=== PATIENT | male | born 2000 | race Two or more races ===

== ENCOUNTER 2024-08-16 06:51 | Emergency (ER) | payer MEDICAID, SELFPAY ==
[2024-08-16 06:52] VITALS: BMI 29.6
[2024-08-16 06:58] VITALS: BP 150/95; PULSE 109; RESP 17; TEMP 37.1; O2SAT 96
--- NOTE | 2024-08-16 07:14 | PD.EDRME ---
Rapid Medical Screening Exam E Arrival date/time: 08/16/24 06:51 Chief Complaint: Headache Time Seen by Provider: 08/16/24 06:55 Vital signs: Vital Signs Temperature 98.8 F 08/16/24 06:58 Pulse Rate 109 H 08/16/24 06:58 Respiratory Rate 17 08/16/24 06:58 Blood Pressure 150/95 H 08/16/24 06:58 Pulse Oximetry (%) 96 08/16/24 06:58 Oxygen Delivery Method Room Air 08/16/24 06:58 E Narrative: 23-year-old male with past medical history of depression presents for evaluation of headache x 4 days. He describes it as posterior ocular tightness with pressure radiating to the back of his scalp. He denies visual changes, weakness, tingling. Patient reports prior similar headaches but states that they have not lasted this long. He denies taking medication for his headache prior to arrival to the ED. Patient denies chest pain, fever, chills, nausea, vomiting, neck pain. Denies recent trauma.
[2024-08-16] MEDS: ACETAMINOPHEN 325 MG TABLET 650 MG PO (07:39)
[2024-08-16] MEDS: METOCLOPRAMIDE INJ 5 MG/ML VIAL 2 ML 10 MG IM (07:40)
[2024-08-16] MEDS: DiphenhydrAMINE INJ 50 MG/ML VIAL 25 MG IM (07:43)
--- NOTE | 2024-08-16 08:24 | XR_ITS ---
Examination: CT brain head without contrast. 2-D sagittal coronal reconstructions Date and time of exam:August 16, 2024 1003 hrs. Indications: Headaches beginning 4 days ago CTDI: vol (mGy):56.7 DLP: (mGycm):1145 Technique: Multiple CT axial sections of the brain have been obtained, 5 mm slice thickness. Contrast has not been administered. 2-D sagittal, coronal reconstructions have been obtained Low dose protocols were performed. One or more of the following dose reduction techniques were used; automated exposure control, adjustment of the mA and/or KV according to patient size, use of iterative reconstruction technique. Findings: No significant ventricular enlargement. Intra-axial or extra-axial hemorrhage density is not seen. No mass effect or midline shift Basal cisterns are not remarkable. Fourth ventricle is midline. Cranial vault intact. Impression: Negative for acute hemorrhage, mass effect or midline shift As clinically warranted, if new onset headaches persist, consider brain MRI follow-up
[2024-08-16] MEDS: KETOROLAC INJ 60 MG/2 ML VIAL 30 MG IM (08:44)
--- NOTE | 2024-08-16 11:26 | PD.EDHA ---
ED Headache RME/HPI General Chief Complaint: Headache Stated Complaint: HEACHACHE X 4 DAYS Time Seen by Provider: 08/16/24 06:55 Arrival date/time: 08/16/24 06:51 Limitations: no limitations RME / HPI RME / HPI Narrative: 23-year-old male with past medical history of depression presents for evaluation of headache x 4 days. He describes it as posterior ocular tightness with pressure radiating to the back of his scalp. He denies visual changes, weakness, tingling. Patient reports prior similar headaches but states that they have not lasted this long. He denies taking medication for his headache prior to arrival to the ED. Patient denies chest pain, fever, chills, nausea, vomiting, neck pain. Denies recent trauma. MD Complaint: headache Onset (ago): day(s) Onset description: gradual Location: retro-orbital Quality: aching Relieving factors: nothing Exacerbating factors: none Related Data Home Medications ?Medication ?Instructions ?Recorded ?Confirmed aripiprazole 2 mg tablet (Abilify) 2 mg PO QDAY #0 tabs 07/19/16 sertraline 25 mg tablet (Zoloft) 25 mg PO HS #0 tabs 08/15/16 Previous Rx's ?Medication ?Instructions ?Recorded famotidine 40 mg tablet (Pepcid) 40 mg PO QDAY #30 tabs 06/07/24 Allergies Allergy/AdvReac Type Severity Reaction Status Date / Time meningitis vaccine Allergy Intermediate body pain Uncoded 08/16/24 06:56 Review of Systems Constitutional Constitutional: Denies fever(s), Reports headache(s) and Denies weakness Eyes Eyes: Denies blurry vision and Denies change in vision ENT Ears, Nose, Mouth, and Throat: Denies dizziness, Denies otalgia, Reports headache(s), Denies nasal congestion, Denies nasal discharge, Denies neck pain and Denies sore throat Cardiovascular Cardiovascular: Denies chest pain and Denies dyspnea Respiratory Respiratory: Denies cough and Denies dyspnea Gastrointestinal Gastrointestinal: Denies nausea and Denies vomiting Musculoskeletal Musculoskeletal: Denies back pain and Denies neck pain Integumentary/Breasts Skin/Breast: Denies rash Neurologic Neurologic: Denies dizziness, Reports headache(s) and Denies weakness Past Medical History Past Medical History CARDIAC: Negative Congestive Heart Failure RESPIRATORY: Negative Chronic Obstructive Pulmonary Disease (COPD) GENITOURINARY: Negative Renal Disease ENDOCRINE: Negative Diabetes Mellitus Type 1 or Diabetes Mellitus Type 2 PSYCHO/SOCIAL: Positive Depression, Anxiety and Self-Mutilation (gives me relief) Social History SMOKING STATUS: Never smoker ED Exam General Limitations: Present no limitations General appearance: Present alert and in no apparent distress Head Head exam: Present atraumatic and normocephalic Eye Eye exam: Present normal appearance, PERRL and EOMI; Absent conjunctival injection, nystagmus, periorbital swelling or periorbital tenderness ENT ENT exam: Present normal exam, normal oropharynx, mucous membranes moist and TM's normal bilaterally Expanded ENT Exam Nose exam: Absent sinus tenderness Neck Neck exam: Present normal inspection and full ROM; Absent meningismus Chest Chest inspection: Present normal inspection and symmetric chest wall rise Respiratory Respiratory exam: Present normal lung sounds bilaterally; Absent respiratory distress Cardiovascular Cardiovascular exam: Present tachycardia Abdominal Exam Abdominal exam: Present soft; Absent distention Extremities Exam Extremities exam: Present normal inspection Back Exam Back exam: Present normal inspection and full ROM Neurological Exam Neurological exam: Present alert, oriented X3 and normal gait Expanded Neurological Exam Cranial nerves: Normal: facial sensation (V) Cerebellar function: Present normal gait Motor strength - LUE: 5/5 Motor strength - RUE: 5/5 Motor strength - LLE: 5/5 Motor strength - RLE: 5/5 Psychiatric Psychiatric exam: Present normal affect Skin Skin exam: Present warm and dry Course Quality Measures none Orders Category Date Time Status Bedside COVID-19 Antigen Test NOW Care 08/16/24 07:10 Active Bedside Influenza A&B Antigen Test NOW Care 08/16/24 07:[address] head/brain wo con Stat Exams 08/16/24 08:24 Completed Acetaminophen Tab [Tylenol Tab] Med 08/16/24 07:10 Discontinued 650 mg PO X1 ONE DiphenhydrAMINE INJ [Benadryl Inj] Med 08/16/24 07:10 Discontinued 25 mg IM X1 ONE Ketorolac Inj [Toradol Inj] Med 08/16/24 08:24 Discontinued 30 mg IM X1 ONE Metoclopramide Inj [Reglan Inj] Med 08/16/24 07:10 Discontinued 10 mg IM X1 ONE Reevaluation(s) Reevaluation #1: Patient reevaluated. Nontoxic-appearing, speaking full sentences. Reports that his headaches improved following Toradol injection. We discussed the results of today's workup. I advised the patient to consider doing saline flushes as this sounds like it might be related to his sinuses. Patient agreeable plan for discharge and follow-up with primary care in the next 24 to 48 hours. Return precautions were provided. Time: 11:27 Vital Signs Vital signs: Vital Signs Temperature 98.8 F 08/16/24 06:58 Pulse Rate 109 H 08/16/24 06:58 Respiratory Rate 17 08/16/24 06:58 Blood Pressure 150/95 H 08/16/24 06:58 Pulse Oximetry (%) 96 08/16/24 06:58 Oxygen Delivery Method Room Air 08/16/24 06:58 Pulse ox 96% on room air, within normal limits. Headache MDM Narrative MDM Narrative:: Tension-Type Headache: Common in young adults, typically associated with a dull, tight, or pressure-like pain that can radiate to the back of the head or neck. This fits with the patient?s description of tightness and pressure without accompanying neurological symptoms. Migraine Headache: While migraines usually involve one-sided throbbing pain, some patients may experience atypical patterns, such as the pressure and tightness described here. However, the lack of visual changes, nausea, and vomiting makes this less likely. Cluster Headache: Although cluster headaches are characterized by severe, unilateral pain, often around the eye, they typically present with autonomic symptoms (e.g., eye tearing, rhinorrhea, ptosis), which this patient does not have. Cervicogenic Headache: This type of headache originates from neck issues, but this patient denies neck pain or trauma. Medication Overuse Headache (MOH): If the patient were using pain medications frequently, this would need to be considered, but the patient denies prior medication use. Sinusitis: While sinus headaches can cause pressure, the absence of other symptoms such as fever, facial tenderness, or nasal congestion makes this less likely. Intracranial Pathology: Although less likely due to the absence of red flags (e.g., fever, nausea, vomiting, neurological symptoms), an intracranial cause (e.g., mass effect, subarachnoid hemorrhage) should be considered in cases of persistent headache. Presentation most consistent with sinus headache, however no fever and no tenderness to palpation of sinuses therefore antibiotic was deferred at this time. CT head reassuring given no mass effect, no midline shift. Viral swabs today were negative. Ultimately patient was discharged home with plan to follow-up with primary care in the next 24 to 48 hours. He was advised to return to the ED if his headache changes or worsens. Patient stable at time of discharge Patient data External records reviewed:: [facility] previous records Clinical information provided by:: patient Social determinants that could affect healthcare access:: none Patient has the following chronic illnesses:: Depression. How is presenting disease/condition affected by chronic disease/condition?: uneffected by Evaluation data The following diagnostics were reviewed and interpreted by me:: lab results and radiology exam(s) Lab and/or radiology exams considered but not ordered:: MRI head considered not ordered. Interpretation Summary: CT head without evidence of acute intracranial process, no midline shift, no mass effect. Flu and COVID negative. Medications / Prescriptions Medications or Prescriptions considered but not ordered:: Rx given. Medication administrations:: Medication Administration History Discontinued Medications Acetaminophen (Acetaminophen 325 Mg Tablet) 650 mg PO X1 ONE Stop: 08/16/24 07:11 Last Admin: 08/16/24 07:39 Dose: 650 mg Documented By: LF Diphenhydramine HCl (Diphenhydramine Inj 50 Mg/Ml Vial) 25 mg IM X1 ONE Stop: 08/16/24 07:11 Last Admin: 08/16/24 07:43 Dose: 25 mg Documented By: LF Ketorolac Tromethamine (Ketorolac Inj 60 Mg/2 Ml Vial) 30 mg IM X1 ONE Stop: 08/16/24 08:25 Last Admin: 08/16/24 08:44 Dose: 30 mg Documented By: Metoclopramide HCl (Metoclopramide Inj 5 Mg/Ml Vial 2 Ml) 10 mg IM X1 ONE Stop: 08/16/24 07:11 Last Admin: 08/16/24 07:40 Dose: 10 mg Documented By: LF Rx given. Consultations Consultation(s) initiated? (list below): No Diagnosis Differential diagnosis headache: migraine, tension headache, subarachnoid hemorrhage, headache, meningitis, sinusitis and other (CVA.) Most likely diagnosis given after review of the tests above:: Sinus headache. Admission Indicated Admission indicated?: not indicated Admission Request Was there a request for admission?: No Disposition Plan Disposition Plan: Discharge Discharge Attestation Discharge Attestation: The patient and all family members were given an opportunity to ask questions and understood the discharge instructions. Discharge instructions specifically effects, indications for sooner follow up or return to the emergency department, and the expected course of current diagnosis. Patient condition: Stable Discharge Plan Plan Patient Disposition: HOME (Self Care) Disposition Comment: stable Prescriptions/Referrals Prescriptions/Med Rec: No Action aripiprazole [Abilify] 2 MG tablet 2 mg PO QDAY Qty: 0 sertraline [Zoloft] 25 MG tablet 25 mg PO HS Qty: 0 famotidine [Pepcid] 40 mg tablet 40 mg PO QDAY Qty: 30 0RF Referrals: No Primary/Family,Physician [Primary Care Provider] - In 1 week Problem List Clinical Impression: Headache Patient/Caregiver Discharge Instructions Education Materials: Self-Care for Headaches, ED Sinus Headache Print Language: Romanian Stand Alone Forms: Laura Award Info., Patient Portal Info Letter PA/PROPERTY ECONOMIST Supervising Physician PA/PROPERTY ECONOMIST Supervising Physician: Dr. Uribe
[2024-08-16 11:59] VITALS: BP 140/78; PULSE 86; RESP 16; TEMP 36.9; O2SAT 98
== END 2024-08-16 12:03 | disposition home or self-care (01) ==
PROVIDERS: Emergency Provider Emergency Medicine
DX: R51.9 Headache, unspecified (principal)
CPT/HCPCS: 70450; 87400; 87811; 96372; 99284; J1200; J1885; J2765; A9270

== ENCOUNTER 2025-04-08 12:18 | Emergency (ER) | payer MEDICAID, SELFPAY ==
[2025-04-08 12:19] VITALS: BMI 30.4
[2025-04-08 12:30] VITALS: BP 156/92; PULSE 106; RESP 18; TEMP 36.9; O2SAT 96
--- NOTE | 2025-04-08 12:43 | EDNOTE_ITS ---
ED Psych RME/HPI General Chief Complaint: Psychiatric Symptoms Stated Complaint: LAC TO LEFT ARM SELF INFLICTED Time Seen by Provider: 04/08/25 12:42 Arrival date/time: 04/08/25 12:18 RME / HPI RME / HPI Narrative: 24-year-old male patient with history of suicidal attempts in the past, stopped taking medication for psych several years ago because he was feeling better, currently working in [employer] was brought in by family for evaluation regarding suicidal attempts. Patient has been thinking of hurting himself for the last 2 weeks, and today decided to grab medical knife/surgical knife and cut themselves. Patient sustained superficial laceration nongaping to the left forearm volar aspect. Denies any homicidal ideation. Denies any other complaints Related Data Home Medications ?Medication ?Instructions ?Recorded ?Confirmed aripiprazole 2 mg tablet (Abilify) 2 mg PO QDAY #0 tab s 07/19/16 sertraline 25 mg tablet (Zoloft) 25 mg PO HS #0 tabs 1 10/15/15 Previous Rx's ?Medication ?Instructions ?Recorded famotidine 40 mg tablet (Pepcid) 40 mg PO QDAY #30 tab s 06/07/24 Allergies Allergy/AdvReac Type Severity Reaction Status Date / Time meningitis vaccine Allergy Intermediate body pain Uncoded 04/08/25 12:22 Review of Systems Review of Systems Narrative Review of Systems: Review of system reviewed and within normal limits except mentioned in HPI ED Exam Narrative Physical exam: VITAL SIGNS: Reviewed. GENERAL APPEARANCE: Alert and interactive, follows commands, no acute distress,, crying, depressed HEAD AND FACE: Non-traumatic. ENT: PERRL, pink conjunctivitis, eyelid no trauma, Mucous membrane moist. NECK: Supple, nontender, no nuchal rigidity. CHEST: No tenderness, no crepitus, no paradoxical movement, no retractions. LUNGS: Clear, well ventilated, symmetric, no rales, no wheezing, no ronchi, no stridor, good breath sounds bilaterally. HEART: Regular rate, regular rhythm, no murmur, no gallops. ABDOMEN: Soft, positive bowel sounds, nondistended, no guarding, nontender, no rebound, no masses, RECTAL: Deferred. GENITAL: Deferred. NEUROLOGICAL: Gross motor function intact sensory function intact, Appropriate for age. MUSCULOSKELETAL: low back nontender, full range of motion. EXTREMITIES: Multiple nongaping laceration, left forearm volar aspect, full range of motion. No active bleeding noted distal neurovascular status intact SKIN: Color pink, dry, no rash, no lacerations, no abrasions, no contusions. LYMPHATICS: Deferred. Course Quality Measures none Orders Category Date Time Status 1799 Psychiatric Hold NOW Care 04/08/25 12:45 Ordered Diet Regular Diet 04/08/25 Lunch Active Acetaminophen Stat Lab 04/08/25 13:17 Completed Alcohol, Blood Medical Stat Lab 04/08/25 13:17 Completed Basic Metabolic Panel Stat Lab 04/08/25 13:17 Completed CBC Stat Lab 04/08/25 13:17 Completed Drug Screen,Urine Stat Lab 04/08/25 14:01 Completed Salicylate Stat Lab 04/08/25 13:17 Completed Urinalysis Stat Lab 04/08/25 14:01 Completed Referral Registration Coordinator NOW 04/08/25 12:42 Active Vital Signs Vital signs: Vital Signs Temperature 98.5 F 04/08/25 12:30 Pulse Rate 106 H 04/08/25 12:30 Respiratory Rate 18 04/08/25 12:30 Blood Pressure 156/92 H 04/08/25 12:30 Pulse Oximetry (%) 96 04/08/25 12:30 Oxygen Delivery Method Room Air 04/08/25 12:30 Psych MDM Narrative MDM Narrative:: Patient remained calm and cooperative. Patient is medically cleared for crisis intervention. Patient was accepted in [facility] in [place]. Patient data External records reviewed:: None Clinical information provided by:: patient and family Social determinants that could affect healthcare access:: mental health Patient has the following chronic illnesses:: None How is presenting disease/condition affected by chronic disease/condition?: exacerbated by Evaluation data The following diagnostics were reviewed and interpreted by me:: lab results Lab and/or radiology exams considered but not ordered:: None Interpretation Summary: Patient's workup today all came back unremarkable including negative for drug toxicity. Medications / Prescriptions Medications or Prescriptions considered but not ordered:: None Medication administrations:: None Consultations Consultation(s) initiated? (list below): No Diagnosis Psych Differential Diagnosis: acute psychosis, suicidal ideation and acute anxiety Most likely diagnosis given after review of the tests above:: Suicidal attempts Admission Indicated Admission indicated?: indicated Admission Request Was there a request for admission?: Yes Admission Attestation Admission request attestation: Patient was transferred to [facility] in [place] Disposition Plan Disposition Plan: Transfer Discharge Plan Plan Patient Disposition: [facility] Facility Prescriptions/Referrals Prescriptions/Med Rec: No Action aripiprazole [Abilify] 2 MG tablet 2 mg PO QDAY Qty: 0 sertraline [Zoloft] 25 MG tablet 25 mg PO HS Qty: 0 famotidine [Pepcid] 40 mg tablet 40 mg PO QDAY Qty: 30 0RF Referrals: No Primary/Family,Physician [Primary Care Provider] - In 1 week Problem List Clinical Impression: Attempted suicide Patient/Caregiver Discharge Instructions Print Language: Azeri Stand Alone Forms: Laura Award Info., Patient Portal Info Letter
--- NOTE | 2025-04-08 12:55 | PC.NURSE ---
PT INTRODUCED TO DAY SHIFT NURSE. WHEN ASKED WHAT HAPPENED STATES, I'VE BEEN OUT OF IT FOR ABOUT 2 WEEKS AND TODAY I COULDN'T STOP CUTTING MYSELF. PT WITH MULTIPLE SHALLOW CUTS TO LEFT FORARM, NO ACTIVE BLEEDING. MULTIPLE HEALED CUT SCARS TO LEFT FOREARM. PT ON 1798 HOLD BY PROVIDER. PT INFORMED ABOUT PROCESS AND NEED FOR URINE SPECIMEN.
[2025-04-08 13:31] LABS: Basophils # (Auto) 0.0 Thou/mm3 (0.0-0.2); Basophils % (Auto) 0 % (0-2.5); Eosinophils # (Auto) 0.1 Thou/mm3 (0.0-0.5); Eosinophils % (Auto) 1 % (0-10); Hematocrit 48.4 % (41.0-53.0); Hemoglobin 17.6 g/dL (13.5-16.0); Immature Granulocytes Auto 0.01 Thou/mm3 (0.00-0.00); Lymphocytes # (Auto) 2.3 Thou/mm3 (1.0-4.8); Lymphocytes % (Auto) 27 % (10-50); Mean Corpuscular HGB Conc 36.4 g/dl (31.0-37.0); Mean Corpuscular Hemoglobin 32.7 pg (25.0-35.0); Mean Corpuscular Volume 90 fL (80-100); Monocytes # (Auto) 0.5 Thou/mm3 (0.0-0.8); Monocytes % (Auto) 6 % (0-12); Neutrophils # (Auto) 5.7 Thou/mm3 (1.8-7.7); Neutrophils % (Auto) 66 % (37-80); Nucleated Red Blood Cell # 0.00 Thou/mm3 (0.00-0.00); Nucleated Red Blood Cell % 0 /100 WBC (0); Platelet Count 330 Thou/mm3 (140-440); RDW Standard Deviation 39.6 fL (35.1-43.9); Red Blood Count 5.39 Miln/mm3 (4.50-5.90); White Blood Count 8.6 Thou/mm3 (3.8-10.6)
[2025-04-08 13:54] LABS: Acetaminophen < 2.0 mcg/mL (10.0-20.0); Alcohol, Blood Medical < 10.0 mg/dL (0-10.0); Anion Gap 12 (7-16); BUN/Creatinine Ratio 13 Ratio (12-20); Blood Urea Nitrogen 10 mg/dL (9-23); Calcium 9.5 mg/dL (8.3-10.6); Carbon Dioxide 21.1 mMol/L (20.0-31.0); Chloride 108 mMol/L (98-107); Creatinine (Component) 0.8 mg/dL (0.6-1.3); Estimated Creatinine Clearance 157.1 mL/min (>60); Glucose 104 mg/dL (74-106); Osmolality,Calculated 280 (275-295); Potassium 3.5 mMol/L (3.4-5.1); Salicylate < 3.0 mg/dL; Sodium 141 mMol/L (136-145); eGFR > 60 See Note
[2025-04-08 14:11] LABS: Collection Type, Urine Clean Catch; Squamous Epithelial Cell,Urine 0 /hpf (0-5)
--- NOTE | 2025-04-08 14:24 | PC.CC ---
Patient is a 24 year-old male who presents to the hospital for intentional self-inflicted laceration to the left forearm. CAITLINWSpencer made [id number] contact with patient to complete assessment. ASW introduced self, role, and reason for assessment. ASW disclosed limits of confidentiality as well. Patient appeared alert and oriented to self, place, and situation. At bedside was patient?s previous hall worker, Nemesio Kent . Patient made appropriate eye contact but appeared to be depressed as he was emotional/tearful throughout assessment. No signs of delusions, paranoid or V/h. Patient reports he has been having suicidal ideations for the past two weeks as he has been having flashbacks from his childhood trauma. Patient reports today he went to the doctor in [place] at [facility] and was under the impression he was going to be seen by a psychiatrist for medication evaluation. Patient reports once there he was informed he was not going to be seen by a psychiatrist. Patient then drove home and began to have suicidal ideations which he was unable to control. Patient got a knife and began to cut his forearm and was only able to control how deep he went. ASW explored with patient if his plan was to end his life. Patient reports his intentions were to end his life. Per Marquis, he went to check on the patient and found the door open he walked in and found the patient on the floor in position with the laceration to the forearm. Patient reports his last suicide attempt was last year he got a knife and cut his arm but did not seek medical treatment. Patient is not connected to outpatient mental health services he was connected to [facility] in [place] but moved to [place] and did not like his new therapist so he stopped going. Patient reports this happen when he was 20 or 21. Patient reports he has a history of Generalized Anxiety Disorder and Major Depressive Disorder. Patient denied homicidal ideations, visual and auditory hallucinations. Patient continues to endorse suicidal ideations. Patient reports he feels he needs help. Marquis reports that patient is in need of mental health services. Patient is unable to provide a viable safety plan. Upon clinical consultation with [facility], Guerline Chávez patient will be placed on a 5150-hold for Danger to Self. ASW provided update to Dr. Ureña, TYLER Granados, hot die picker Nicolle, and bedside RN La that patient will be discharged to LPS facility. ASW to send referral via [facility] to LPS facilities. ?
[2025-04-08 14:28] LABS: Bilirubin,Urine Negative (Negative); Blood,Urine Negative (Negative); Clarity,Urine Clear (Clear/Hazy); Color,Urine Yellow (Lt Yel-Yel); Glucose, Urine Negative (Negative); Ketones,Urine Negative (Negative); Leukocyte Esterase,Urine Negative (Negative); Nitrite,Urine Negative (Negative); PH,Urine 6.5 (5.0-7.0); Protein,Urine Negative (Neg - Trace); RBC,Urine 3 /hpf (0-3); Specific Gravity,Urine 1.023 (1.001-1.035); Urobilinogen,Urine Negative mg/dL (0.0-1.0); WBC,Urine < 1 /hpf (0-5)
[2025-04-08 14:33] VITALS: BP 128/87; PULSE 88; RESP 16; O2SAT 95
[2025-04-08 14:35] LABS: Amphetamine/Methamp Scrn,U Negative (Negative); Barbiturate Screen,Urine Negative (Negative); Benzodiazepines Screen,Urine Negative (Negative); Benzoylecgonine Screen, Ur Negative (Negative); Fentanyl Screen,Urine Negative (Negative); Opiate Screen,Urine Negative (Negative); THC Screen,Urine Negative (Negative)
--- NOTE | 2025-04-08 14:42 | PC.NURSE ---
placed on 5150 hold per geriatric social work professor
--- NOTE | 2025-04-08 15:34 | PC.CC ---
Patient was provided with his patient's rights handbook and was receptive to receiving the book. Patient was accepted to [facility]. ASW provided accepting information to the patient. ASW provided update of discharge plan to [facility] to medical team.
--- NOTE | 2025-04-08 15:35 | PC.NURSE ---
at 1522 received call from [email or web address] emilia Gandhi. Report given to Chantel. at 1524 accepted to [email or web address] to [address]
[2025-04-08 16:07] VITALS: BP 113/77; PULSE 87; RESP 16; TEMP 36.4; O2SAT 95
[2025-04-08 18:03] VITALS: BP 125/73; PULSE 85; RESP 16; TEMP 36.5; O2SAT 96
--- NOTE | 2025-04-08 19:02 | PC.NURSE ---
[facility] here to transport patient to [facility], report given.
== END 2025-04-08 19:05 ==
PROVIDERS: Nurse Practitioner Family; Emergency Provider Family Medicine
DX: S51.812A Laceration without foreign body of left forearm, initial encounter (principal); X78.1XXA Intentional self-harm by knife, initial encounter; Z75.1 Person awaiting admission to adequate facility elsewhere
CPT/HCPCS: 36415; 80048; 80307; 80320; 80329; 81001; 85025; 96127; 99284; G0480

== ENCOUNTER 2025-05-01 22:39 | Emergency (ER) | payer MEDICAID, SELFPAY ==
[2025-05-01 22:41] VITALS: BMI 32.2
[2025-05-01 22:50] VITALS: BP 138/75; PULSE 103; RESP 22; TEMP 36.9; O2SAT 97
--- NOTE | 2025-05-01 23:00 | EDNOTE_ITS ---
ED SOB =RME/HPI General Chief Complaint: Shortness of Breath/Dyspnea Stated Complaint: SOB AND BODY FEELS HEAVY Time Seen by Provider: 05/02/25 00:01 Arrival date/time: 05/01/25 22:39 Limitations: no limitations RME / HPI RME / HPI Narrative: DR. BURDICK MAIN ED EVALUATION: 24-year-old male with history of depression and anxiety presents with progressive fatigue over the past 2 hours accompanied by a panic attack. Episode characterized by shortness of breath, palpitations, and diaphoresis. Patient reports taking two 10 mg propranolol tablets today for symptoms. Occasional alcohol use. Related Data Home Medications ?Medication ?Instructions ?Recorded ?Confirmed aripiprazole 2 mg tablet (Abilify) 2 mg PO QDAY #0 tab s 07/19/16 sertraline 25 mg tablet (Zoloft) 25 mg PO HS #0 tabs 1 10/15/15 Previous Rx's ?Medication ?Instructions ?Recorded famotidine 40 mg tablet (Pepcid) 40 mg PO QDAY #30 tab s 06/07/24 Allergies Allergy/AdvReac Type Severity Reaction Status Date / Time meningitis vaccine Allergy Intermediate body pain Uncoded 05/01/25 22:41 Review of Systems Review of Systems Systems Reviewed: All systems reviewed, normal except as documented Past Medical History Past Medical History PSYCHO/SOCIAL: Positive Depression, Anxiety and Self-Mutilation Social History SMOKING STATUS: Former smoker SUBSTANCE USE: does not use ALCOHOL: Current ALCOHOL FREQUENCY: 0-2 Drinks per Day ED Exam General Limitations: Present no limitations General appearance: Present alert and in no apparent distress Head Head exam: Present atraumatic, normocephalic and normal inspection Eye Eye exam: Present normal appearance, PERRL and EOMI ENT ENT exam: Present normal exam, normal oropharynx and mucous membranes moist Neck Neck exam: Present normal inspection, full ROM and trachea midline Chest Chest inspection: Present normal inspection and symmetric chest wall rise Respiratory Respiratory exam: Present normal lung sounds bilaterally Cardiovascular Cardiovascular exam: Present regular rate, normal rhythm and normal heart sounds Abdominal Exam Abdominal exam: Present soft and normal bowel sounds Extremities Exam Extremities exam: Present normal inspection and full ROM Back Exam Back exam: Present normal inspection and full ROM Neurological Exam Neurological exam: Present alert, oriented X3 and CN II-XII intact Psychiatric Psychiatric exam: Present normal affect and normal mood Skin Skin exam: Present warm, dry, intact and normal color Course Quality Measures none Orders Category Date Time Status EKG (ED ONLY) *Do not use* NOW Care 05/01/25 23:23 Completed IV [Insert IV] NOW Care 05/02/25 00:09 Completed EKG (ED Only) Stat Exams 05/01/25 23:23 Draft CBC Stat Lab 05/02/25 00:00 Completed Comprehensive Metabolic Panel Stat Lab 05/02/25 00:00 Completed Drug Screen,Urine Stat Lab 05/02/25 00:57 Completed Magnesium Stat Lab 05/02/25 00:00 Completed Troponin I Stat Lab 05/02/25 00:00 Completed Urinalysis Stat Lab 05/02/25 00:57 Completed Diazepam [Valium] Med 05/01/25 23:55 Discontinued 5 mg PO X1 ONE Sodium Chloride 0.9% 1000 ml [Ns] 1,000 ml Med 05/01/25 23:55 Discontinued IV 999 mls/hr Sodium Chloride 0.9% 1000 ml [Ns] 1,000 ml Med 05/02/25 02:15 Discontinued IV 999 mls/hr Vital Signs Vital signs: Vital Signs Temperature 98.5 F 05/01/25 22:50 Pulse Rate 103 H 05/01/25 22:50 Respiratory Rate 22 H 05/01/25 22:50 Blood Pressure 138/75 H 05/01/25 22:50 Pulse Oximetry (%) 97 05/01/25 22:50 Oxygen Delivery Method Room Air 05/01/25 22:50 Shortness of Breath / Dyspnea MDM Narrative MDM Narrative:: ILynn am scribing for and in the presence of Dr. Burdick. 24-year-old male with history of depression and anxiety presents with acute onset fatigue and panic attack symptoms including shortness of breath, palpitations, and diaphoresis. Reports took two 10 mg propranolol tablets earlier today. No chest pain, syncope, or suicidal ideation reported. Placed on government professor, given IV fluids, and administered low-dose oral benzodiazepine with improvement in symptoms. Lab work is pending. Patient remains hemodynamically stable. Continued ED observation planned pending results and reassessment... Patient data External records reviewed:: [facility] previous records Clinical information provided by:: patient Social determinants that could affect healthcare access:: alcohol use (occasional) Patient has the following chronic illnesses:: depression and anxiety How is presenting disease/condition affected by chronic disease/condition?: exacerbated by Evaluation data The following diagnostics were reviewed and interpreted by me:: lab results Lab and/or radiology exams considered but not ordered:: none Interpretation Summary: My interpretation: EKG performed at 2325 hours, sinus rhythm, rate 81, no acute ST segment changes, no ectopy, normal intervals Medications / Prescriptions Medications or Prescriptions considered but not ordered:: none Medication administrations:: Medication Administration History Discontinued Medications Diazepam (Diazepam 5 Mg Tablet) 5 mg PO X1 ONE Stop: 05/01/25 23:56 Last Admin: 05/02/25 00:09 Dose: 5 mg Documented By: CVL Sodium Chloride (Ns) 1,000 mls @ 999 mls/hr IV .Q1H1M ONE Stop: 05/02/25 00:55 Last Infusion: 05/02/25 01:26 Dose: Infused Documented By: Admin: 05/02/25 00:11 Dose: 999 mls/hr Documented By: CVL Sodium Chloride (Ns) 1,000 mls @ 999 mls/hr IV .Q1H1M ONE Stop: 05/02/25 03:15 Last Infusion: 05/02/25 04:29 Dose: Infused Documented By: Admin: 05/02/25 03:08 Dose: 999 mls/hr Documented By: CB see above if any Consultations Consultation(s) initiated? (list below): No Diagnosis Shortness of Breath Differential Diagnosis: other (Panic attack, arrhythmia, and generalized anxiety disorder.) Most likely diagnosis given after review of the tests above:: Panic attacks/generalized anxiety disorder Admission Indicated Admission indicated?: not indicated Admission Request Was there a request for admission?: No Disposition Plan Disposition Plan: Discharge Discharge Attestation Discharge Attestation: The patient and all family members were given an opportunity to ask questions and understood the discharge instructions. Discharge instructions specifically effects, indications for sooner follow up or return to the emergency department, and the expected course of current diagnosis. Patient condition: Stable Discharge Plan Plan Patient Disposition: HOME (Self Care) Discharge Disposition comment: Stable Prescriptions/Referrals Prescriptions/Med Rec: No Action aripiprazole [Abilify] 2 MG tablet 2 mg PO QDAY Qty: 0 sertraline [Zoloft] 25 MG tablet 25 mg PO HS Qty: 0 famotidine [Pepcid] 40 mg tablet 40 mg PO QDAY Qty: 30 0RF Referrals: No Primary/Family,Physician [Referring Provider] - In 1 week Problem List Clinical Impression: Panic attack as reaction to stress Impression comment: Generalized anxiety disorder Patient/Caregiver Discharge Instructions Discharge Activity: activity as tolerated Diet Instructions: Regular Education Materials: Anxiety Disorders Tx Therapy Additional Instructions: Avoid taking additional propranolol. Force fluids/maintain adequate rest nutrition follow-up with clinical psychologist/psychiatrist for further direction. Return if worsening Print Language: Mozambican Stand Alone Forms: Laura Award Info., Patient Portal Info Letter
--- NOTE | 2025-05-01 23:23 | EKG_ITS ---
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
[2025-05-02] MEDS: DIAZEPAM 5 MG TABLET PO (00:09)
[2025-05-02] MEDS: SODIUM CHLORIDE 0.9% 1000 ML 1,000 ML 999 ML IV ×2 (00:11→03:08)
[2025-05-02 00:15] VITALS: BP 131/81; PULSE 79; RESP 18; TEMP 36.7; O2SAT 95
[2025-05-02 01:06] LABS: Basophils # (Auto) 0.0 Thou/mm3 (0.0-0.2); Basophils % (Auto) 0 % (0-2.5); Eosinophils # (Auto) 0.1 Thou/mm3 (0.0-0.5); Eosinophils % (Auto) 1 % (0-10); Hematocrit 47.8 % (41.0-53.0); Hemoglobin 17.5 g/dL (13.5-16.0); Immature Granulocytes Auto 0.03 Thou/mm3 (0.00-0.00); Lymphocytes # (Auto) 1.7 Thou/mm3 (1.0-4.8); Lymphocytes % (Auto) 18 % (10-50); Mean Corpuscular HGB Conc 36.6 g/dl (31.0-37.0); Mean Corpuscular Hemoglobin 32.9 pg (25.0-35.0); Mean Corpuscular Volume 90 fL (80-100); Monocytes # (Auto) 0.5 Thou/mm3 (0.0-0.8); Monocytes % (Auto) 5 % (0-12); Neutrophils # (Auto) 7.0 Thou/mm3 (1.8-7.7); Neutrophils % (Auto) 75 % (37-80); Nucleated Red Blood Cell # 0.00 Thou/mm3 (0.00-0.00); Nucleated Red Blood Cell % 0 /100 WBC (0); Platelet Count 335 Thou/mm3 (140-440); RDW Standard Deviation 39.8 fL (35.1-43.9); Red Blood Count 5.32 Miln/mm3 (4.50-5.90); White Blood Count 9.4 Thou/mm3 (3.8-10.6)
[2025-05-02 01:17] LABS: Alanine Aminotransferase 34 U/L (10-49); Albumin, Serum 4.8 gm/dL (3.5-5.0); Albumin/Globulin Ratio 1.8 (1.2-2.2); Alkaline Phosphatase 100 U/L (46-116); Anion Gap 13 (7-16); Aspartate Amino Transferase 33 U/L (0-34); BUN/Creatinine Ratio 12 Ratio (12-20); Bilirubin,Total 2.3 mg/dL (0.3-1.2); Blood Urea Nitrogen 12 mg/dL (9-23); Calcium 10.0 mg/dL (8.3-10.6); Calcium (Corrected) 10.0 mg/dL (8.5-10.1); Carbon Dioxide 19.5 mMol/L (20.0-31.0); Chloride 108 mMol/L (98-107); Creatinine (Component) 1.0 mg/dL (0.6-1.3); Estimated Creatinine Clearance 129.2 mL/min (>60); Globulin 2.6 gm/dL (2.3-3.5); Glucose 82 mg/dL (74-106); Magnesium 1.7 mg/dL (1.6-2.6); Osmolality,Calculated 278 (275-295); Potassium 3.7 mMol/L (3.4-5.1); Sodium 140 mMol/L (136-145); Total Protein 7.4 gm/dL (5.7-8.2); Troponin I < 0.020 ng/mL (0.0-0.045); eGFR > 60 See Note
[2025-05-02 01:38] LABS: Collection Type, Urine Clean Catch
--- NOTE | 2025-05-02 01:46 | PC.NURSE ---
Pt requesting food, this life underwriter gave chicken noodle soup and crackers. Pt eating in [facility] comfortably
[2025-05-02 01:52] LABS: Bacteria,Urine Rare; Bilirubin,Urine Negative (Negative); Blood,Urine Negative (Negative); Clarity,Urine Clear (Clear/Hazy); Color,Urine Yellow (Lt Yel-Yel); Glucose, Urine Negative (Negative); Ketones,Urine 4+ (Negative); Leukocyte Esterase,Urine Negative (Negative); Nitrite,Urine Negative (Negative); PH,Urine 6.0 (5.0-7.0); Protein,Urine Trace (Neg - Trace); RBC,Urine 2 /hpf (0-3); Specific Gravity,Urine 1.030 (1.001-1.035); Squamous Epithelial Cell,Urine < 1 /hpf (0-5); Urobilinogen,Urine Negative mg/dL (0.0-1.0); WBC,Urine 1 /hpf (0-5)
[2025-05-02 02:00] LABS: Amphetamine/Methamp Scrn,U Negative (Negative); Barbiturate Screen,Urine Negative (Negative); Benzodiazepines Screen,Urine Negative (Negative); Benzoylecgonine Screen, Ur Negative (Negative); Fentanyl Screen,Urine Negative (Negative); Opiate Screen,Urine Negative (Negative); THC Screen,Urine Negative (Negative)
[2025-05-02 03:08] VITALS: BP 115/70; PULSE 64; RESP 18; TEMP 36.8; O2SAT 98
== END 2025-05-02 04:36 | disposition home or self-care (01) ==
PROVIDERS: Emergency Provider Emergency Medicine; PCP Family Medicine
DX: F43.0 Acute stress reaction (principal); R00.2 Palpitations
CPT/HCPCS: 36415; 80053; 80307; 81001; 83735; 83880; 84484; 85025; 85379; 85610; 85730; 87040; 93005; 96360; 96361; 99283; J7030; A9270